=== PATIENT | female | born 1990 | race Caucasian/White ===

== ENCOUNTER 2017-11-16 11:45 | Inpatient (IN) | payer MEDICAID, OTHER ==
[~2017-11-16] VITALS: Ht 167.6 cm; Wt 69.0 kg
[2017-11-16] VITALS (75 sets, daily range): BP systolic 103–131; BP diastolic 63–88; PULSE 74–105; RESP 18; TEMP 97.9–98.2
[~2017-11-16 11:45] MED LIST: Docusate Sod/Senna PO; IBUP600 PO; PRENTAB72 PO
[2017-11-16 12:44] LABS: AUTOMATED NEUTROPHIL # 6.7 TH/MM3 (1.8-7.7); BASOPHIL % 0.4 % (0.0-2.0); EOSINOPHIL % 0.6 % (0.0-4.0); HEMATOCRIT 29.6 % (35.0-46.0); LYMPH % 18.1 % (9.0-44.0); LYMPHOCYTE # 1.6 TH/MM3 (1.0-4.8); MEAN CORPUSCULAR HEMOGLOBIN 28.5 PG (27.0-34.0); MEAN CORPUSCULAR HGB CONC 33.9 % (32.0-36.0); MEAN PLATELET VOLUME 7.7 FL (7.0-11.0); MONO % 4.2 % (0.0-8.0); MONOCYTE # 0.4 TH/MM3 (0-0.9); NEUT % 76.7 % (16.0-70.0); PLATELET COUNT 209 TH/MM3 (150-450); RED BLOOD COUNT 3.52 MIL/MM3 (4.00-5.30); RED CELL DISTRIBUTION WIDTH 13.7 % (11.6-17.2); WHITE BLOOD COUNT 8.8 TH/MM3 (4.0-11.0)
--- NOTE | 2017-11-16 12:44 | HHI.HP ---
HPI Chief Complaint labor Travel History International Travel<30 Days: No Contact w/Intl Traveler<30Days: No Known Affected Area: No History of Present Illness HPI 27 yo with iup at 39w2d presents to [facility] visit. She is having increased pain and pressure. She has good fm, no lof or vb. PNC c/b hyperemesis in first trimester; mild anemia. Weeks Gestation: 39 Para: 2 : 4 History Past Medical History Narrative Medical anemia Obstetric History Obstetric History G1 Ectopic 2010 tx w mtx G2 FTSVD 03/2013 @ 41 wk3d, 7 lb 4 oz, M, "Javy" G3 FTSVD 09/2014 @ 38w4d, 6lb 12 oz, M, "Junito" G4 current Past Surgical History Surgical History: No Previous Surgery Family History Family History: Negative Social History Alcohol Use: No Tobacco Use: No Substance Abuse: No Allergies-Medications (Allergen,Severity, Reaction): Coded Allergies: No Known Allergies (Unverified , 09/13/14) Home Meds Reported Medications Vit W/ Ferrous Fumara () 6.75 Mg Iron-200 Mcg Tab, 1 PO 03/30/13 Discontinued Scripts Ibuprofen (Motrin 600 Mg Tab) 600 Mg Tab, 600 MG PO Q6H for CRAMPS, #30 TAB NO REFILLS Refills Prov:KELLI ADAMS CAbiolaN.MAbiola 09/14/14 [Docusate Sod/Senna] 1 TAB TAB No Conflict Check, 2 TAB PO Q12H Y for CONSTIPATION, #30 TAB NO REFILLS Refills Prov:KELLI ADAMSN.MAbiola 09/14/14 Review of Systems General / Constitutional: No: Fever, Weight Gain, Chills, Other Eyes: No: Diploplia, Blurred Vision, Visual changes, Pain, Photophobia HENT: No: Headaches, Vertigo, Lightheadedness Cardiovascular: No: Irregular Rhythm, Chest Pain or Discomfort, Palpitations, Tachycardia, Syncope, Varicosities, Edema, Cyanosis Respiratory: No: Cough, Short of Breath, Other Gastrointestinal: No: Nausea, Vomiting, Diarrhea Genitourinary: No: Decreased Urinary Output, Oliguria Musculoskeletal: No: Limited ROM, Weakness, Cramping, Edema, Pain Skin: No Rash, No Itching, No Dryness, No Lumps, No Change in Pigmentation, No Change in Nails, No Alopecia, No Lesions Neurologic: No: Weakness, Dizziness, Syncope, Focal Abnormalities, Coordination Problem, Headache, Slurred Speech, Seizures Psychiatric: No: Depression, Suicidal Ideations, Homicidal Ideation Endocrine: No: Heat Intolerance, Cold Intolerance, Polydipsia, Polyuria, Other Physical Exam Narrative GENERAL: Well-nourished, well-developed patient. SKIN: Warm and dry. HEAD: Normocephalic and atraumatic. EYES: No scleral icterus. No injection or drainage. ENT: No nasal drainage noted. Mucous membranes pink. Airway patent. NECK: Supple, trachea midline. No JVD. CARDIOVASCULAR: Regular rate and rhythm without murmurs, gallops, or rubs. RESPIRATORY: Breath sounds equal bilaterally. No accessory muscle use. ABDOMEN/GI: Abdomen soft, non-tender, bowel sounds present, no rebound, no guarding Gravid to 39weeks size Fundal Height:39 GENITOURINARY: External Genitalia: intact and normal in appearance BUS glands: [-] Cervix: 5/80/0 Presentation:OP Membranes: [intact Uterine Contractions: [-] FHT's: Doppler nl fht in office. NST in progress EXTREMITIES: No cyanosis or edema. BACK: Nontender without obvious deformity. No CVA tenderness. NEUROLOGICAL: Awake and alert. Motor and sensory grossly within normal limits. Five out of 5 muscle strength in all muscle groups. Normal speech. Caprini VTE Risk Assessment Caprini VTE Risk Assessment: No/Low Risk (score <= 1) Caprini Risk Assessment Model Point Value = 1 Point Value = 2 Point Value = 3 Point Value = 5 Age 41-60 Minor surgery BMI > 25 kg/m2 Swollen legs Varicose veins or History of unexplained or recurrent spontaneous Oral contraceptives or hormone replacement Sepsis (< 1 month) Serious lung disease, including pneumonia (< 1 month) Abnormal pulmonary function Acute myocardial infarction Congestive heart failure (< 1 month) History of inflammatory bowel disease Medical patient at bed rest Age 61-74 Arthroscopic surgery Major open surgery (> 45 min) Laparoscopic surgery (> 45 min) Malignancy Confined to bed (> 72 hours) Immobilizing plaster cast Central venous access Age >= 75 History of VTE Family history of VTE Factor V Leiden Prothrombin [id number] Lupus anticoagulant Anticardiolipin antibodies Elevated serum homocysteine Heparin-induced thrombocytopenia Other congenital or acquired thrombophilia Stroke (< 1 month) Elective arthroplasty Hip, pelvis, or leg fracture Acute spinal cord injury (< 1 month) Prophylaxis Regimen Total Risk Factor Score Risk Level Prophylaxis Regimen 0-1 Low Early ambulation 2 Moderate Order ONE of the following: *Sequential Compression Device (SCD) *Heparin 5000 units SQ BID 3-4 Higher Order ONE of the following medications: *Heparin 5000 units SQ TID *Enoxaparin/Lovenox 40 mg SQ daily (WT < 150 kg, CrCl > 30 mL/min) *Enoxaparin/Lovenox 30 mg SQ daily (WT < 150 kg, CrCl > 10-29 mL/min) *Enoxaparin/Lovenox 30 mg SQ BID (WT < 150 kg, CrCl > 30 mL/min) AND/OR *Sequential Compression Device (SCD) 5 or more Highest Order ONE of the following medications: *Heparin 5000 units SQ TID (Preferred with Epidurals) *Enoxaparin/Lovenox 40 mg SQ daily (WT < 150 kg, CrCl > 30 mL/min) *Enoxaparin/Lovenox 30 mg SQ daily (WT < 150 kg, CrCl > 10-29 mL/min) *Enoxaparin/Lovenox 30 mg SQ BID (WT < 150 kg, CrCl > 30 mL/min) AND *Sequential Compression Device (SCD) Data Data Vital Signs Reviewed: Yes Orders Orders Admit To Inpatient (11/16/17 ) Vital Signs (Adult) .Per protocol (11/16/17 12:31) Activity Oob Ad Yue (11/16/17 12:31) Heart (11/16/17 12:31) Amnioinfusion (11/16/17 12:31) Urinary Catheter Management .ONCE (11/16/17 12:31) Diet Npo (11/16/17 Lunch) Lactated Ringer's 1000 Ml Inj (Lr 1000 M (11/16/17 12:31) Lactated Ringer's 1000 Ml Inj (Lr 1000 M (11/16/17 12:31) Sodium Chlorid 0.9% 500 Ml Inj (Ns 500 M (11/16/17 12:45) Sodium Chlor 0.9% 1000 Ml Inj (Ns 1000 M (11/16/17 12:51) Lidocaine 1% Inj (50 Ml) (Xylocaine 1% I (11/16/17 12:45) Citric Acid-Sodium Citrate Liq (Bicitra (11/16/17 12:45) Ondansetron Inj (Zofran Inj) (11/16/17 12:45) Fentanyl Inj (Fentanyl Inj) (11/16/17 12:45) Fentanyl Inj (Fentanyl Inj) (11/16/17 12:45) Complete Blood Count With Diff (11/16/17 12:31) Hold Clot (11/16/17 12:31) Abo/Rh Blood Type (11/16/17 12:31) Urinalysis - C+S If Indicated (11/16/17 12:31) Drug Screen, Random Urine (11/16/17 12:31) Resp Oxygen Non Rebreathe Mask (11/16/17 ) ^ Epidural / Intrathecal Infus (11/16/17 12:31) Oxytocin 30 Units-500ml Premix (Pitocin (11/16/17 12:45) Lidocaine 1% Inj (50 Ml) (Xylocaine 1% I (11/16/17 12:45) Light Mineral Oil (Muri-Lube Oil) (11/16/17 12:45) ^ Non Stress Test (11/16/17 12:31) Response To Medication .Post New Med Administration, Reaction (11/16/17 12:31) ^ Discontinue Medication (11/16/17 12:31) Oxytocin Drip (2-2-30) (11/16/17 12:45) Inpatient Certification (11/16/17 ) Specimen To Be Collected PRN (11/16/17 12:31) Specimen To Be Collected PRN (11/16/17 12:31) Group B Strep: Negative Assessment/Plan Problem List: (1) Labor and delivery indication for care or intervention ICD Codes: O75.9 - Complication of labor and delivery, unspecified (2) Anemia ICD Codes: D64.9 - Anemia, unspecified Assessment and Plan 27 yo with iup at 39 wk 2 d here for admission for labor 1) Augmentation of labor- will get epidural first, then pit arom as needed 2) GBS negative 3) FEtus- female "JAREK" EFW 7.5lb, OP presentation Discharge Planning home ppd 2 LovingKelli augustin MD Nov 16, 2017 12:44
[2017-11-16] MEDS ORDERED: CITRIC ACID-SODIUM CITRATE LIQ 30 ML UDC PO SCH (12:45)
[2017-11-16] MEDS ORDERED: OXYTOCIN 30 UNITS-500ML PREMIX 500 ML IV ONE (12:45)
[2017-11-16] MEDS ORDERED: LIDOCAINE HCL 1% 50 ML VIAL INFIL PRN (12:45)
[2017-11-16] MEDS ORDERED: LIDOCAINE HCL 1% 50 ML VIAL I-DERMAL PRN (12:45)
[2017-11-16] MEDS ORDERED: MINERAL OIL 10 ML VIAL TOPICAL PRN (12:45)
[2017-11-16] MEDS ORDERED: ONDANSETRON HCL 4 MG/2 ML VIAL IV PUSH PRN (12:45)
[2017-11-16] MEDS ORDERED: LACTATED RINGER'S 1000 ML INJ 1,000 ML IV PRN (12:45)
[2017-11-16] MEDS ORDERED: OXYTOCIN 30 UNITS-500ML PREMIX 500 ML IV PRN (12:45)
[2017-11-16] MEDS ORDERED: SODIUM CHLORID 0.9% 500 ML INJ 500 ML IV PRN (12:45)
[2017-11-16] MEDS ORDERED: SODIUM CHLOR 0.9% 1000 ML INJ 1,000 ML IV PRN (13:15)
[2017-11-16] MEDS: LACTATED RINGER'S 1000 ML INJ 1,000 ML IV SCH ×3 (13:26→22:30)
[2017-11-16 16:26] LABS: BACTERIA, URINE RARE /hpf; BILIRUBIN, URINE NEG (NEG); BLOOD, URINE NEG (NEG); GLUCOSE,URINE NEG (NEG); KETONE, URINE NEG (NEG); MUCUS URINE FEW /lpf (OCC); NITRITE,URINE NEG (NEG); SQUAMOUS EPITHELIAL CELL URINE 1 /hpf (0-5); URINE COLOR YELLOW (YELLW/STRAW); URINE LEUKOCYTE ESTERASE NEG (NEG)
[2017-11-16] MEDS ORDERED: fentaNYL 2MCG-BUPIV 0.125% INJ 100 ML ONE (17:49)
[2017-11-16] MEDS ORDERED: fentaNYL 2MCG-BUPIV 0.125% 100 ML EPIDURAL SCH (18:30)
[2017-11-16] MEDS ORDERED: NO SYSTEM NARCOTICS PRN (18:30)
[2017-11-16] MEDS ORDERED: ePHEDrine/NS 25 MG/5 ML SYRINGE IV PUSH PRN (18:30)
[2017-11-16] MEDS ORDERED: DO NOT ADMINISTER ANTICOAGULANTS PRN (18:30)
[2017-11-17] VITALS (18 sets, daily range): BP systolic 117–130; BP diastolic 74–88; PULSE 58–86; RESP 14–18; TEMP 98–98.4; O2SAT 96
[2017-11-17] MEDS ORDERED: LIDOCAINE HCL 1% 20 ML VIAL ONE (00:35)
--- NOTE | 2017-11-17 01:03 | PD.OB.DELI ---
Weeks gestation: 39 Gest age assessed date: Nov 17, 2017 Gest age assessed time: 01:01 Pt started active labor?: Yes Active labor start date: Nov 16, 2017 Active labor start time: 21:00 Medical induction of labor?: No Artificial rupture of membrane: No Anesthesia: Epidural Episiotomy: None Vaginal Delivery: Normal Presentation: Occiput anterior Nuchal Cord: x1 Delayed cord clamping (45 sec): Yes : Female Delivery date: Nov 17, 2017 Delivery time: 00:52 One Minute : 9 Five Minute : 9 Placenta: Spontaneous delivery Estimated blood loss: 300cc Additional Information baby delivered by Suzanne March MD Nov 17, 2017 01:03
[2017-11-17] MEDS ORDERED: ACETAMINOPHEN 325 MG TAB PO PRN (01:15)
[2017-11-17] MEDS ORDERED: ONDANSETRON ODT 4 MG TAB PO PRN (01:15)
[2017-11-17] MEDS ORDERED: BENZOCAINE 20% TOPICAL SPRAY 60 ML CAN TOPICAL PRN (01:15)
[2017-11-17] MEDS ORDERED: SODIUM CHLORIDE 0.9% FLUSH 10 ML FLUSH IV FLUSH PRN (01:15)
[2017-11-17] MEDS ORDERED: OXYTOCIN 30 UNITS-500ML PREMIX 500 ML IV SCH (01:15)
[2017-11-17] MEDS ORDERED: ZOLPIDEM TARTRATE 5 MG TAB PO PRN (01:15)
[2017-11-17] MEDS ORDERED: DOCUSATE SODIUM 50 MG/SENNA 8.6 MG TAB PO PRN (01:15)
[2017-11-17] MEDS ORDERED: ALUMINUM/MAGNESIUM/SIMETH 30 ML CUP PO PRN (01:15)
[2017-11-17] MEDS ORDERED: WITCH HAZEL 50%/GLYCERIN 12.5% 40 PAD JAR TOPICAL PRN (01:15)
[2017-11-17] MEDS ORDERED: IBUP-232 PO (07:03)
--- NOTE | 2017-11-17 07:04 | HHI.DCPOC ---
Discharge Care Plan Diagnosis: (1) Vaginal delivery (2) Anemia Your Health Problems Are: Vaginal delivery Report Symptoms to Your Doctor -Temperature above 100.5 degrees -Redness, of incision or excessive or foul smelling drainage -Unusual pain or calf pain -Increased vaginal bleeding -Painful or difficulty urinating -Feelings of extreme sadness or anxiety after 2 weeks Goals to Promote Your Health * To prevent worsening of your condition and complications * To maintain your health at the optimal level Directions to Meet Your Goals Take your medications as prescribed Follow your dietary instruction Follow activity as directed Ensure plenty of rest for recovery Drink fluids for hydration Keep your appointments as scheduled Take your immunizations and boosters as scheduled If your symptoms worsen call your PCP, if no PCP go to Urgent Care Center or Emergency Room Smoking is Dangerous to Your Health. Avoid second hand smoke Call the 24-hour crisis hotline for domestic abuse at Meño Gomez MD Nov 17, 2017 07:04
--- NOTE | 2017-11-17 07:12 | HHI.OB ---
Subjective Post Day: 0 Remarks doing well, pain controlled, ambulating, voiding, TPO no n/v, VB < / = menses. Objective Vitals/I&O Vital Signs Date Time Temp Pulse Resp B/P (MAP) Pulse Ox O2 Delivery O2 Flow Rate FiO2 11/17/17 03:50 98.2 67 18 96 11/17/17 03:50 128/76 (93) 11/17/17 02:59 98.2 11/17/17 02:34 18 11/17/17 02:31 66 117/76 (90) 11/17/17 02:05 18 11/17/17 02:00 58 123/79 (94) 11/17/17 01:50 129/81 (97) 11/17/17 01:50 18 11/17/17 01:34 18 11/17/17 01:30 68 123/88 (100) 11/17/17 01:20 76 16 119/74 (89) 11/17/17 01:05 16 11/17/17 01:01 82 130/80 (97) 11/17/17 00:30 86 122/77 (92) 11/17/17 00:00 86 117/76 (90) 11/16/17 23:57 105 103/63 (76) 11/16/17 23:23 98.1 18 11/16/17 23:15 75 124/75 (91) 11/16/17 23:15 81 11/16/17 23:10 74 11/16/17 23:05 78 11/16/17 23:00 78 11/16/17 23:00 75 112/76 (88) 11/16/17 22:55 82 11/16/17 22:50 77 11/16/17 22:45 80 127/77 (94) 11/16/17 22:45 76 11/16/17 22:35 80 11/16/17 22:30 87 11/16/17 22:30 79 123/85 (98) 11/16/17 22:25 79 11/16/17 22:20 74 11/16/17 22:16 83 115/69 (84) 11/16/17 22:15 78 11/16/17 22:10 80 11/16/17 22:05 78 11/16/17 22:00 85 127/79 (95) 11/16/17 22:00 74 18 21:55 76 11/16/17 21:50 84 11/16/17 21:46 85 119/79 (92) 11/16/17 21:45 88 18 21:40 80 18 21:35 82 18 21:31 83 117/71 (86) 11/16/17 21:30 79 11/16/17 21:25 87 11/16/17 21:20 78 11/16/17 21:15 18 123/84 (97) 11/16/17 21:15 80 11/16/17 21:10 77 11/16/17 21:05 89 11/16/17 21:00 122/84 (97) 11/16/17 21:00 86 11/16/17 20:50 84 11/16/17 20:45 94 11/16/17 20:40 79 11/16/17 20:35 83 11/16/17 20:32 97.9 18 11/16/17 20:30 90 131/86 (101) 11/16/17 20:25 92 11/16/17 20:20 95 11/16/17 20:15 92 118/79 (92) 11/16/17 20:10 79 11/16/17 20:05 75 11/16/17 20:00 83 117/74 (88) 11/16/17 19:55 76 11/16/17 19:50 76 11/16/17 19:45 76 11/16/17 19:45 85 119/78 (92) 11/16/17 19:40 76 11/16/17 19:35 81 11/16/17 19:30 76 11/16/17 19:30 84 106/83 (91) 11/16/17 19:25 76 11/16/17 19:20 78 11/16/17 19:15 74 11/16/17 19:15 83 119/76 (90) 11/16/17 19:10 80 11/16/17 19:05 76 11/16/17 19:00 75 11/16/17 19:00 80 117/68 (84) 11/16/17 18:55 80 11/16/17 18:50 88 11/16/17 18:45 86 2/7/18 18:45 88 122/76 (91) 11/16/17 18:40 88 123/73 (90) 11/16/17 18:35 86 128/81 (97) 11/16/17 18:33 18 11/16/17 18:30 18 11/16/17 18:30 86 120/76 (91) 11/16/17 18:25 81 120/77 (91) 11/16/17 18:25 85 11/16/17 18:20 97 11/16/17 18:20 90 123/87 (99) 11/16/17 18:16 76 119/77 (91) 11/16/17 18:15 82 11/16/17 18:10 76 11/16/17 17:00 98.1 18 11/16/17 16:56 85 121/76 (91) 11/16/17 16:27 83 119/88 (98) 11/16/17 15:49 76 117/75 (89) 11/16/17 14:57 98.2 18 11/16/17 14:56 79 111/66 (81) 11/16/17 14:14 89 121/69 (86) 11/16/17 13:32 96 112/73 (86) Objective Remarks GENERAL: Well-nourished, well-developed patient. CARDIOVASCULAR: Regular rate and rhythm without murmurs, gallops, or rubs. RESPIRATORY: Breath sounds equal bilaterally. No accessory muscle use. ABDOMEN/GI: Abdomen soft, non-tender. Fundus: Firm, non-tender at umbilicus. GENITOURINARY: Light to moderate bleeding. EXTREMITIES: No cyanosis or edema, non-tender, without signs of DVT. Medications and IVs Current Medications Medications (Trade) Dose Ordered Sig/Gerda Route Start Time Stop Time Status Last Admin (NS Flush) 2 ml BID IV FLUSH 11/17/17 09:00 (NS Flush) 2 ml UNSCH PRN IV FLUSH 11/17/17 01:15 (Tylenol) 650 mg Q4H PRN PO 11/17/17 01:15 11/17/17 01:25 (Motrin) 800 mg Q8H PRN PO 11/17/17 01:15 (Americaine 20% Top Spr) 1 spray Q4H PRN TOPICAL 11/17/17 01:15 (Tucks Pads) 1 applic QID PRN TOPICAL 11/17/17 01:15 (Heavenly-Colace) 2 tab Q12H PRN PO 11/17/17 01:15 (Ambien) 5 mg HS PRN PO 11/17/17 01:15 (M-M-R Ii Inj) 0.5 ml ONCE ONCE SQ 11/17/17 16:00 11/17/17 16:01 (Boostrix Inj) 0.5 ml ONCE ONCE IM 11/17/17 16:00 11/17/17 16:01 (Mag-Al Plus Susp Liq) 15 ml Q8H PRN PO 11/17/17 01:15 (Zofran Odt) 4 mg Q6H PRN PO 11/17/17 01:15 Assessment/Plan Problem List: (1) Labor and delivery indication for care or intervention ICD Codes: O75.9 - Complication of labor and delivery, unspecified (2) Anemia ICD Codes: D64.9 - Anemia, unspecified Assessment and Plan 27 yo s/p at 39w3d 1. PPD #0: AF, VSS, anticipate d/c home tomorrow, continue routine care, discussed follow up, precautions and expectations. - Female "Isabel" Meño Gomez MD Nov 17, 2017 07:12
[2017-11-17] MEDS: IBUPROFEN 800 MG TAB PO PRN ×2 (07:44→16:32)
[2017-11-17] MEDS ORDERED: SODIUM CHLORIDE 0.9% FLUSH 10 ML FLUSH IV FLUSH SCH (09:00)
[2017-11-17] MEDS ORDERED: INFLUENZA VIRUS VACCINE (QUADRIVALENT) 0.5 ML SYR IM ONE (10:00)
[2017-11-17] MEDS ORDERED: DIPHTH/TETANUS/ACEL PERTUSSIS (BOOSTER) 0.5 ML VIAL/PFS IM ONE (16:00)
[2017-11-17] MEDS ORDERED: MEASLES, MUMPS, RUBELLA VACCINE 0.5 ML VIAL SQ ONE (16:00)
[2017-11-18] MEDS: IBUPROFEN 800 MG TAB PO PRN ×2 (01:08→11:36)
--- NOTE | 2017-11-18 08:39 | HHI.OB ---
Subjective Post Day: 1 Remarks doing well, desires to be d/c today Objective Vitals/I&O Vital Signs Date Time Temp Pulse Resp B/P (MAP) Pulse Ox O2 Delivery O2 Flow Rate FiO2 11/17/17 21:35 66 18 121/75 (90) 11/17/17 21:15 98.4 11/17/17 16:35 18 Objective Remarks GENERAL: Well-nourished, well-developed patient. CARDIOVASCULAR: Regular rate and rhythm without murmurs, gallops, or rubs. RESPIRATORY: Breath sounds equal bilaterally. No accessory muscle use. ABDOMEN/GI: Abdomen soft, non-tender. Fundus: Firm, non-tender at umbilicus. GENITOURINARY: Light to moderate bleeding. EXTREMITIES: No cyanosis or edema, non-tender, without signs of DVT. Medications and IVs Current Medications Medications (Trade) Dose Ordered Sig/Gerda Route Start Time Stop Time Status Last Admin (NS Flush) 2 ml BID IV FLUSH 11/17/17 09:00 11/17/17 09:00 (NS Flush) 2 ml UNSCH PRN IV FLUSH 11/17/17 01:15 (Tylenol) 650 mg Q4H PRN PO 11/17/17 01:15 11/17/17 01:25 (Motrin) 800 mg Q8H PRN PO 11/17/17 01:15 11/18/17 01:08 (Americaine 20% Top Spr) 1 spray Q4H PRN TOPICAL 11/17/17 01:15 (Tucks Pads) 1 applic QID PRN TOPICAL 11/17/17 01:15 (Heavenly-Colace) 2 tab Q12H PRN PO 11/17/17 01:15 (Ambien) 5 mg HS PRN PO 11/17/17 01:15 (Mag-Al Plus Susp Liq) 15 ml Q8H PRN PO 11/17/17 01:15 (Zofran Odt) 4 mg Q6H PRN PO 11/17/17 01:15 Assessment/Plan Problem List: (1) Labor and delivery indication for care or intervention ICD Codes: O75.9 - Complication of labor and delivery, unspecified (2) Anemia ICD Codes: D64.9 - Anemia, unspecified Assessment and Plan 27 yo s/p at 39w3d 1. PPD #1: AF, VSS, anticipate d/c home, continue routine care, discussed follow up, precautions and expectations. - Female "Isabel" Kelli Loving MD Nov 18, 2017 08:39
[2017-11-18 09:05] VITALS: BP 109/80; PULSE 63; RESP 16; TEMP 98.5; O2SAT 100
== END 2017-11-18 12:59 | disposition home or self-care (01) | DRG 775 ==
LOC: H2EB 11:45 → H1EA 11-17 03:33
PROVIDERS: ADMIT Obstetrics & Gynecology; ATTEND Obstetrics & Gynecology
PROC: 10E0XZZ Delivery of Products of Conception, External Approach (ICD-10-PCS; principal; 2017-11-16)
DX: O99.02 Anemia complicating childbirth (principal); D64.9 Anemia, unspecified; O69.81X0 Labor and delivery complicated by cord around neck, without compression, not applicable or unspecified; Z3A.39 39 weeks gestation of pregnancy
CPT/HCPCS: 59025; 80307; 81001; 85025; 90715; J2405; J2590; J7120